=== PATIENT | female | born 1950 | race Caucasian/White ===

== ENCOUNTER → 2016-09-15 | Outpatient (CLI) | payer OTHER ==
[~2016-09-15] MED LIST: BLACK CURRENT OIL PO; CHOLINE CITRAT650 MG PO; ESTRADIOL1 EAC1 TRANSDERM; FEXOFENADINE H180 MG PO; NASACORT10.8 ML NASAL; NORCO 5-325 TA1 EACH PO; OMEGA-31000 M1 PO; PRILOSEC40 MG PO; TEKTURNA300 MG PO; VITAMIN D-32000 UNIT PO; WELLBUTRIN XL150 MG PO; XANAX 0.5 MG0.5 MG PO
== END ==
LOC: RAD 04:32
DX: Z12.31 Encounter for screening mammogram for malignant neoplasm of breast (principal)

== ENCOUNTER → 2017-01-09 | Outpatient (CLI) | payer OTHER ==
[2017-01-09 09:19] LABS: CREATININE 0.9 mg/dL (0.6-1.0)
== END ==
LOC: LABMALL 08:40
PROVIDERS: Colon & Rectal Surgery
DX: K57.30 Diverticulosis of large intestine without perforation or abscess without bleeding (principal); K43.2 Incisional hernia without obstruction or gangrene

== ENCOUNTER → 2018-06-08 | Outpatient (CLI) | payer OTHER | LOC: RAD 12:08 | DX: Z12.31 Encounter for screening mammogram for malignant neoplasm of breast (principal) ==

== ENCOUNTER → 2020-10-02 | Outpatient (CLI) | payer OTHER | LOC: BC 12:58 | PROVIDERS: ATTEND Internal Medicine | DX: Z12.31 Encounter for screening mammogram for malignant neoplasm of breast (principal); N64.89 Other specified disorders of breast ==